=== PATIENT | female | born 1975 ===

== ENCOUNTER 2019-02-02 10:52 | Emergency (ER) | payer OTHER ==
[2019-02-02 10:52] VITALS: BMI 26.5
[2019-02-02 11:11] VITALS: RESP 18; O2SAT 97
[2019-02-02 11:48] LABS: SQUAMOUS EPITHIAL 1 /hpf (0-5); URINE BILIRUBIN NEGATIVE (NEGATIVE); URINE BLOOD 2+ (NEGATIVE); URINE CLARITY Clear (Clear); URINE COLOR Straw (YELLOW); URINE GLUCOSE (UA) NORMAL (Normal); URINE LEUKOCYTE ESTERASE NEG Leu/uL (Negative); URINE PROTEIN NEGATIVE (NEGATIVE); URINE UROBILINOGEN NORMAL mg/dL (0.2-1.0)
[2019-02-02] MEDS ORDERED: Iohexol 240 (50 ml) PO STA (12:02)
--- NOTE | 2019-02-02 12:02 | C.PDOC ---
History Of Present Illness 43 y/o female presents to the ED complaining of RUQ pain for 15 days. Patient is s/p cholecystectomy 20 years ago and reports current pain is the same as that time. She was seen at [facility] ED for the same complaint on 01/27/19, had CT co ncerning for early appendicitis and was hospitalized as observation patient. Per records reviewed, patient improved and was discharged home on 01/28/19, with diagnosis of possible adhesions. Patient reports pain is now worse, with new- onset right mid back pain. Associated with nausea, but no vomiting. Otherwise she denies any diarrhea, fevers, chills, chest pain, SOB, or urinary complaints. 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 (Slovenian interpretation provided by ED ZEESHAN Wolff) History/Exam Limitations: no limitations Onset/Duration Of Symptoms: Days (15) Current Symptoms Are (Timing): Still Present Severity: Moderate Location Of Pain/Discomfort: RUQ Radiation Of Pain To:: Back Quality Of Discomfort: "Pain" Associated Symptoms: Nausea Alleviating Factors: None Past Medical History Reviewed: Historical Data, Nursing Documentation, Vital Signs Vital Signs: Last Vital Signs Temp 98.6 F 02/02/19 11:08 Pulse 64 02/02/19 11:08 Resp 18 02/02/19 11:08 BP 102/67 02/02/19 11:08 Pulse Ox 97 02/02/19 11:08 - Medical History PMH: Gastritis, Hepatitis, Kidney Stones Denies: Chronic Kidney Disease Surgical History: Cholecystectomy - [facility] Procedures ESOPHAGOGASTRODUODENOSCOPY [EGD] W/CLOSED BIOPSY (08/21/14) MONITORING NOS (04/02/15) Family History: States: Unknown Family Hx - Social History Hx Tobacco Use: No Hx Alcohol Use: No Hx Substance Use: No - Immunization History Hx Tetanus Toxoid Vaccination: No Hx Influenza Vaccination: No Hx Pneumococcal Vaccination: No Review Of Systems Except As Marked, All Systems Reviewed And Found Negative. Constitutional: Negative for: Fever, Chills Eyes: Negative for: Vision Change Cardiovascular: Negative for: Chest Pain, Palpitations Respiratory: Negative for: Shortness of Breath Gastrointestinal: Positive for: Nausea, Abdominal Pain. Negative for: Vomiting, Diarrhea, Melena, Hematochezia Genitourinary: Negative for: Dysuria, Frequency Musculoskeletal: Positive for: Back Pain Neurological: Negative for: Weakness, Numbness, Headache Physical Exam - Physical Exam Appears: Non-toxic, No Acute Distress Skin: Normal Color, Warm, Dry Head: Atraumatic, Normacephalic Eye(s): bilateral: Normal Inspection, PERRL, EOMI Oral Mucosa: Moist Neck: Normal ROM Chest: Symmetrical Cardiovascular: Rhythm Regular, No Murmur Respiratory: Normal Breath Sounds, No Accessory Muscle Use, Other (NARD) Gastrointestinal/Abdominal: Soft, Tenderness (to the RUQ), No Distention, No Guarding, No Rebound Back: No CVA Tenderness, No Vertebral Tenderness Extremity: Bilateral: Atraumatic, Normal Color And Temperature Pulses: Left Radial: Normal, Right Radial: Normal Neurological/Psych: Oriented x3, Normal Cranial Nerves Gait: Steady ED Course And Treatment - Laboratory Results Result Diagrams: 02/02/19 12:12 02/02/19 12:12 Lab Results: Urine Color Straw (YELLOW) 02/02/19 11:41 Urine Clarity Clear (Clear) 02/02/19 11:41 Urine pH 7.0 (5.0-8.0) 02/02/19 11:41 Ur Specific Cocoa 1.004 (1.003-1.030) 02/02/19 11:41 Urine Protein Negative mg/dL (NEGATIVE) 02/02/19 11:41 Urine Glucose (UA) Normal mg/dL (Normal) 02/02/19 11:41 Urine Ketones Negative mg/dL (NEGATIVE) 02/02/19 11:41 Urine Blood 2+ (NEGATIVE) H 02/02/19 11:41 Urine Nitrate Negative (NEGATIVE) 02/02/19 11:41 Urine Bilirubin Negative (NEGATIVE) 02/02/19 11:41 Urine Urobilinogen Normal mg/dL (0.2-1.0) 02/02/19 11:41 Ur Leukocyte Esterase Neg Stephanie/uL (Negative) 02/02/19 11:41 Urine WBC (Auto) < 1 /hpf (0-5) 02/02/19 11:41 Urine RBC (Auto) 2 /hpf (0-3) 02/02/19 11:41 Ur Squamous Epith Cells 1 /hpf (0-5) 02/02/19 11:41 O2 Sat by Pulse Oximetry: 97 (on RA) Pulse Ox Interpretation: Normal - Radiology CXR: Interpreted by Me CXR Interpretation: Yes: No Acute Disease - CT Scan/US CT Abd/Pelvis with contrast Other Rad Studies (CT/US): Read By Radiologist, Radiology Report Reviewed CT/US Interpretation: Accession No. : [id number]. Patient Name / ID : JESSICA ROSAS / [id number]. Exam Date : 02/02/2019 13:56:28 ( Approved ). Study Comment : Sex / Age : F / 43Y. Creator : Lazara Garza MD. Dictator : Lazara Garza MD. Integration Software Engineer : Relief Mate : Lazara Garza MD. Approver2 : Report Date : 02/02/2019 14:35:52. My Comment : . PROCEDURE: CT Abdomen and Pelvis with oral and IV contrast. HISTORY: abd pain RUQ/FLANK HO DASHAWN. COMPARISON: CT abdomen and pelvis without contrast performed 04/22/17. TECHNIQUE: Contiguous axial images of the abdomen and pelvis. Oral and IV contrast was administered. Coronal and Sagittal reformats generated and reviewed. Contrast dose: 100 mL Visipaque 320 IV. Radiation dose: Total exam DLP = 829.83 mGy-cm. This CT exam was performed using one or more of the following dose reduction techniques: Automated exposure control, adjustment of the mA and/or kV according to patient size, and/or use of iterative reconstruction technique. FINDINGS: LOWER THORAX: No visible consolidation, pleural effusion, or pneumothorax. LIVER: Unremarkable. GALLBLADDER AND BILE DUCTS: Cholecystectomy. PANCREAS: Unremarkable. SPLEEN: Unremarkable. ADRENALS: Unremarkable. KIDNEYS AND URETERS: The kidneys enhance symmetrically. Mild fullness of the renal collecting systems. No evidence of obstructing calculus. BLADDER: Distended urinary bladder appears otherwise unremarkable. REPRODUCTIVE: Uterus is present. 2.1 cm probable left ovarian cyst. APPENDIX: The appendix appears within normal limits of caliber. No secondary signs of acute appendicitis. BOWEL: The stomach is nondistended. The bowel loops appear within normal limits of caliber without evidence of intestinal obstruction. PERITONEUM: No significant free fluid. No definite free air. LYMPH NODES: No bulky lymphadenopathy identified. VASCULATURE: No aortic aneurysm. No atherosclerotic calcification or mural plaque present. BONES: L5-S1 intervertebral disc space narrowing and vacuum disc phenomenon. OTHER FINDINGS: None. IMPRESSION: Mild fullness of bilateral renal collecting systems in setting of distended urinary bladder. No obstructing calculus evident. 2.1 cm probable left ovarian cyst. Cholecystectomy. Progress - Re-Evaluation Re-evaluation Note: 02/02/19 15:17 BLADDER SCAN 200 CC POST VOID. NO ABD PAIN. ADVISED NEED FOR UROLOGY FU D/W DR Lizzeth JACOBO AWARE OF ER FINDINGS, DC W FLOMAX AND WILL FU OFFICE 02/03. PT ADVISED TO GO TO OFFICE - Data Reviewed Data Reviewed: Lab, Diagnostic imaging, Old records Medical Decision Making Medical Decision Making: Impression: RUQ pain Plan: - CMP - Lipase - CBC - UA - Chest x-ray - CT Abd/Pelvis with PO&IV contrast - 2 mg IV Morphine - 4 mg IV Zofran Disposition Counseled Patient/Family Regarding: Studies Performed, Diagnosis, Need For Followup, Rx Given - Disposition Referrals: Will Jacobo MD [Staff Provider] - Disposition: HOME/ ROUTINE Disposition Time: 15:20 Condition: IMPROVED Additional Instructions: SEGUIMIENTO DE LA OFICINA DEL DR Lizzeth JACOBO 02/03/19 a las 10 AM PARA MS BURNETTE. Prescriptions: Tamsulosin [Flomax] 0.4 mg PO DAILY #14 cap Instructions: Urinary Retention (DC) Forms: Event [facility] [employer] (Tunisian), Work Excuse Print Language: COMORAN - Clinical Impression Clinical Impression: Urinary retention - Scribe Statement The provider has reviewed the documentation as recorded by the Ilianaiblizzeth Flores Provider Attestation: All medical record entries made by the Ilianaiblizzeth were at my direction and personally dictated by me. I have reviewed the chart and agree that the record accurately reflects my personal performance of the history, physical exam, medical decision making, and the department course for this patient. I have also personally directed, reviewed, and agree with the discharge instructions and disposition.
--- NOTE | 2019-02-02 12:16 | RAD ---
HISTORY: abd pain ruq/flank COMPARISON: None available TECHNIQUE: Chest PA and lateral FINDINGS: LUNGS: No focal consolidation. Please note that chest x-ray has limited sensitivity for the detection of pulmonary masses. PLEURA: No significant pleural effusion identified. No definite pneumothorax . CARDIOVASCULAR: Heart size appears within normal limits. No atherosclerotic calcification present. OSSEOUS STRUCTURES: No acute osseous abnormality identified. VISUALIZED UPPER ABDOMEN: Unremarkable. OTHER FINDINGS: None. IMPRESSION: No focal consolidation.
[2019-02-02 12:17] LABS: BASO % 0.4 % (0.0-2.0); EOS # 0.1 K/uL (0.0-0.7); EOS % 2.1 % (0.0-4.0); HEMOGLOBIN 13.6 g/dL (11.0-16.0); LYMPH # 2.2 K/uL (1.0-4.3); LYMPH % 34.6 % (20.0-40.0); MEAN CELL VOLUME 91.8 fL (81.0-99.0); MEAN CORPUSCULAR HEMOGLOBIN 31.3 pg (27.0-31.0); MEAN CORPUSCULAR HGB CONC 34.1 g/dL (33.0-37.0); MEAN PLATELET VOLUME 9.2 fL (7.2-11.7); MONO # 0.5 K/uL (0.0-0.8); MONO % 8.4 % (0.0-10.0); NEUT # 3.5 K/uL (1.8-7.0); NEUT % 54.5 % (50.0-75.0); RBC 4.34 Mil/uL (3.80-5.20); RED CELL DISTRIBUTION WIDTH 13.3 % (11.5-14.5); WHITE BLOOD COUNT 6.4 K/uL (4.8-10.8)
[2019-02-02] MEDS ORDERED: Iohexol 240 (50 ml) ONE (12:17)
[2019-02-02 12:35] LABS: BLOOD UREA NITROGEN 13 mg/dL (7-17); CALCIUM 10.3 mg/dl (8.6-10.4); GFR NON-AFRICAN AMERICAN > 60; LIPASE 84 U/L (23-300)
[2019-02-02 12:47] LABS: ALB/GLOB RATIO 1.4 (1.0-2.1); ALBUMIN 4.7 g/dL (3.5-5.0); ALT/SGPT 25 U/L (9-52); AST/SGOT 44 U/L (14-36)
[2019-02-02] MEDS ORDERED: Iodixanol 320 MG/ML 100 ML BOTTLE IV ONE (13:30)
--- NOTE | 2019-02-02 14:39 | CT ---
PROCEDURE: CT Abdomen and Pelvis with oral and IV contrast. HISTORY: abd pain RUQ/FLANK HO DASHAWN COMPARISON: CT abdomen and pelvis without contrast performed 04/22/17 TECHNIQUE: Contiguous axial images of the abdomen and pelvis. Oral and IV contrast was administered. Coronal and Sagittal reformats generated and reviewed. Contrast dose: 100 mL Visipaque 320 IV Radiation dose: Total exam DLP = 829.83 mGy-cm. This CT exam was performed using one or more of the following dose reduction techniques: Automated exposure control, adjustment of the mA and/or kV according to patient size, and/or use of iterative reconstruction technique. FINDINGS: LOWER THORAX: No visible consolidation, pleural effusion, or pneumothorax. LIVER: Unremarkable. GALLBLADDER AND BILE DUCTS: Cholecystectomy. PANCREAS: Unremarkable. SPLEEN: Unremarkable. ADRENALS: Unremarkable. KIDNEYS AND URETERS: The kidneys enhance symmetrically. Mild fullness of the renal collecting systems. No evidence of obstructing calculus. BLADDER: Distended urinary bladder appears otherwise unremarkable. REPRODUCTIVE: Uterus is present. 2.1 cm probable left ovarian cyst. APPENDIX: The appendix appears within normal limits of caliber. No secondary signs of acute appendicitis. BOWEL: The stomach is nondistended. The bowel loops appear within normal limits of caliber without evidence of intestinal obstruction. PERITONEUM: No significant free fluid. No definite free air. LYMPH NODES: No bulky lymphadenopathy identified. VASCULATURE: No aortic aneurysm. No atherosclerotic calcification or mural plaque present. BONES: L5-S1 intervertebral disc space narrowing and vacuum disc phenomenon. OTHER FINDINGS: None. IMPRESSION: Mild fullness of bilateral renal collecting systems in setting of distended urinary bladder. No obstructing calculus evident. 2.1 cm probable left ovarian cyst. Cholecystectomy.
[2019-02-02 14:45] VITALS: BP 135/64; PULSE 61; TEMP 98
== END 2019-02-02 15:42 | disposition home or self-care (01) ==
LOC: C.ER 10:52
DX: R33.9 Retention of urine, unspecified (principal)
CPT/HCPCS: 71046; 74177; 80053; 81001; 81025; 83690; 85025; 96374; 96375; 99284; J2270; J2405; Q9966; Q9967